=== PATIENT | male | born 1990 | race Caucasian/White ===

== ENCOUNTER 2018-10-21 02:10 | Emergency (ER) | payer OTHER ==
[~2018-10-21] VITALS: Ht 172.7 cm; Wt 59.0 kg
[~2018-10-21 02:10] MED LIST: ALBU90OI6 INH; AMOX500 PO; AZIT250 PO; CIPR500 PO; CODGUAEL PO; DEXGUASY PO; DOXY100 PO; IBUP200; IBUP600 PO; IBUP800 PO; METO10 PO; PRODEXEL PO; RXIBUP800 PO; TRAM50 PO
== END 2018-10-21 03:10 | disposition left against medical advice (07) ==
LOC: ER 02:10
DX: Z53.21 Procedure and treatment not carried out due to patient leaving prior to being seen by health care provider (principal)

== ENCOUNTER 2021-09-15 06:08 | Emergency (ER) | payer OTHER ==
[~2021-09-15] VITALS: Ht 172.7 cm; Wt 56.7 kg
[2021-09-16] MEDS ORDERED: DEXTROAMPHETAMI10 M5 (03:05)
[2021-09-16] MEDS ORDERED: Amphetamine Sal20 MG (03:05)
[2021-09-16] MEDS ORDERED: Adderall Xr 1010 MG (03:05)
[2021-09-16] MEDS ORDERED: GABA300T24 PO (03:08)
[2021-09-16] MEDS ORDERED: CATAPRES0.1 MG PO (03:09)
[2021-09-16] MEDS ORDERED: METO25 PO (03:10)
[2021-09-16] MEDS ORDERED: PROM25 PO (03:10)
[2021-09-16] MEDS ORDERED: TRAZ50 PO (03:11)
== END 2021-09-15 14:06 | disposition home or self-care (01) ==
LOC: ER 06:08
DX: G93.40 Encephalopathy, unspecified (principal); F14.10 Cocaine abuse, uncomplicated; F11.10 Opioid abuse, uncomplicated; Z88.5 Allergy status to narcotic agent
CPT/HCPCS: 93005; 93010; 99284-25; A9270

== ENCOUNTER 2021-09-16 02:45 | Emergency (ER) | payer OTHER ==
[~2021-09-16] VITALS: Ht 172.7 cm; Wt 83.9 kg
[2021-09-16] MEDS ORDERED: DEXTROAMPHETAMI10 M5 (03:05)
[2021-09-16] MEDS ORDERED: Amphetamine Sal20 MG (03:05)
[2021-09-16] MEDS ORDERED: Adderall Xr 1010 MG (03:05)
[2021-09-16] MEDS ORDERED: GABA300T24 PO (03:08)
[2021-09-16] MEDS ORDERED: CATAPRES0.1 MG PO (03:09)
[2021-09-16] MEDS ORDERED: PROM25 PO (03:10)
[2021-09-16] MEDS ORDERED: METO25 PO (03:10)
[2021-09-16] MEDS ORDERED: TRAZ50 PO (03:11)
== END 2021-09-16 19:37 | disposition home or self-care (01) ==
LOC: ER 02:45
DX: F11.23 Opioid dependence with withdrawal (principal); Z88.5 Allergy status to narcotic agent; Z88.8 Allergy status to other drugs, medicaments and biological substances; Z79.899 Other long term (current) drug therapy
CPT/HCPCS: 99284; A9270